=== PATIENT | female | born 1955 ===

== ENCOUNTER 2019-12-02 12:46 | Outpatient (CLI) | payer BC ==
--- NOTE | 2019-12-02 13:57 | BD ---
DEXA BONE DENSITOMETRY: (Dual energy x-ray absorptiometry) DATE: 12/02/2019 HISTORY: 64-year old white female for age-related, post-menopausal, osteoporosis screening. weight: 160 lbs height: 69 in. Age of menopause: 52 COMPARISON: 03/13/2012 FINDINGS: The bone mineral density (BMD) is given in grams per square centimeter (g/cm2): LUMBAR SPINE: BMD (g/cm^2) T score Z score L1: 0.971 -0.2 1.3 L2: 1.132 0.9 2.6 L3: 1.053 -0.3 1.4 L4: 0.960 -0.9 0.8 Total: 1.031 -0.1 1.5 Change in BMD compared to previous DEXA: 1.5 %. HIP: BMD (g/cm^2) T score Z score Femoral neck: 0.803 -0.4 1.0 Total: 1.008 0.5 1.7 Change in BMD compared to previous DEXA: -3.3 %. IMPRESSION: 1.) The mean bone mineral density of the lumbar spine is normal. Fracture risk is not increased. 2) The bone mineral density of the femoral neck is normal. Fracture risk is not increased.
== END 2019-12-02 12:47 | disposition home or self-care (01) ==
LOC: BICMAMMO 12:46
PROVIDERS: ATTEND Obstetrics & Gynecology
DX: Z13.820 Encounter for screening for osteoporosis (principal)
CPT/HCPCS: 77080